=== PATIENT | male | born 1960 | race Caucasian/White ===

== ENCOUNTER 2020-09-12 10:08 | Inpatient (IN) ==
[2020-09-12] MEDS ORDERED: Piperacillin/Tazobactam 3.375 GM in Water for inj. (sterile) 20 ML IVP ONE (10:49)
[2020-09-12] MEDS ORDERED: Vancomycin 2,000 MG/520 ML IV.SOLN IVPB ONE (10:49)
[2020-09-12 11:36] LABS: Basophils # 0.1 K/mcL (0.0-0.2); Basophils % 0.5 %; Eosinophils # 0.2 K/mcL (0.0-0.6); Eosinophils % 1.7 %; Hematocrit 45.6 % (37.5-50.1); Immature Granulocytes % 0.8 % (0-4); Lymphocytes # 2.4 K/mcL (0.6-4.6); Mean Corpuscular HGB Conc 32.9 g/dL (31.6-35.5); Mean Corpuscular Hemoglobin 31.2 pg (28.0-33.3); Mean Corpuscular Volume 94.8 fL (83.0-100.0); Mean Platelet Volume 10.6 fL (9.4-12.4); Monocytes # 0.6 K/mcL (0.0-1.3); Monocytes % 6.4 %; Platelet Count 197 K/mcL (140-400); Red Blood Count 4.81 M/mcL (4.19-5.50); Red Cell Distribution Width 12.9 % (11.5-14.5); Segmented Neutrophils % 64.6 %; White Blood Count 9.3 K/mcL (4.3-11.1)
[2020-09-12 11:37] LABS: Bilirubin,Urine Negative (Negative); Blood,Urine Negative (Negative); Clarity,Urine Clear (Clear); Color,Urine Light-Yellow (Yellow); Glucose,Urine (UA) Normal (Normal); Ketones,Urine Negative (Negative); Leukocyte Esterase,Urine Negative (Negative); Nitrite,Urine Negative (Negative); PH,Urine 5.5 pH Units (5.0-8.0); Protein,Urine Negative (Neg-Trace); Specific Gravity,Urine > 1.030 (1.010-1.025); Urobilinogen,Urine Normal (Normal)
[2020-09-12 11:44] LABS: Prothrombin Time 11.9 Seconds (9.4-12.1)
[2020-09-12 11:47] LABS: Activated Partial Thrombo Time 28.3 Seconds (26.0-36.0)
[2020-09-12 11:52] LABS: BUN/Creatinine Ratio 29 (6-26); Blood Urea Nitrogen 20 mg/dL (6-20); Carbon Dioxide 25 mEq/L (23-29); Chloride 103 mEq/L (98-107); Glucose 169 mg/dL (70-105); Osmolality,Calculated 289 (280-300); Potassium 4.2 mEq/L (3.5-5.1); Sodium 136 mEq/L (136-145); Troponin I < 0.03 ng/mL (< 0.04); eGFR For African Americans > 60 (> 60); eGFR For Non-African Americans > 60 (> 60)
[2020-09-12] MEDS ORDERED: Naloxone 0.4 MG/ML INJ IVP PRN (12:50)
[2020-09-12] MEDS ORDERED: Ondansetron 4 MG/2 ML VIAL IVP PRN (12:50)
[2020-09-12] MEDS ORDERED: *HR* OxyCODONE/APAP 5/325 TABLET PO PRN (12:51)
[2020-09-12] MEDS ORDERED: Carisoprodol 350 MG TABLET PO PRN (12:51)
[2020-09-12] MEDS ORDERED: *HR* Dextrose 50 % in Water (Vial) 50 ML VIAL IVP PRN (12:56)
[2020-09-12] MEDS ORDERED: Dextrose Gel 15 GM/37.5 ML TUBE PO PRN ×2 (12:56)
[2020-09-12] MEDS ORDERED: D5% in Water 1,000 ML IVC PRN (12:56)
[2020-09-12 13:59] LABS: C-Reactive Protein < 5 mg/L (Less than 10)
[2020-09-12] MEDS: Insulin LISPRO 300 UNITS/3 ML VIAL SQ SCH ×3 (15:53→20:44)
[2020-09-12] MEDS: *HR* Heparin 5,000 UNIT/ML VIAL SQ SCH (18:06)
[2020-09-12] MEDS: Piperacillin/Tazobactam 3.375 GM in 0.9 % Sodium Chloride Mini Bag 100 ML IVPB SCH (18:21)
[2020-09-12] MEDS: 0.9 % Sodium Chloride 1,000 ML IVC SCH (18:21)
[2020-09-13] MEDS ORDERED: Vancomycin 2,000 MG/520 ML IV.SOLN IVPB ONE
[2020-09-13] MEDS: Piperacillin/Tazobactam 3.375 GM in 0.9 % Sodium Chloride Mini Bag 100 ML IVPB SCH ×3 (02:19→17:40)
[2020-09-13] MEDS: *HR* Heparin 5,000 UNIT/ML VIAL SQ SCH ×2 (02:59→17:40)
[2020-09-13] MEDS: Insulin LISPRO 300 UNITS/3 ML VIAL SQ SCH ×4 (08:23→21:25)
[2020-09-13] MEDS ORDERED: Perflutren Lipid Microsphere 1.3 ML in 0.9 % Sodium Chloride 8.7 ML IVP PRN (09:26)
[2020-09-13] MEDS ORDERED: Regadenoson 0.4 MG/5 ML SYRINGE IVP ONE (10:48)
[2020-09-13 13:43] LABS: Basophils % 0.5 %; Eosinophils # 0.1 K/mcL (0.0-0.6); Eosinophils % 1.8 %; Hematocrit 43.9 % (37.5-50.1); Immature Granulocytes % 0.8 % (0-4); Lymphocytes # 1.6 K/mcL (0.6-4.6); Lymphocytes % 19.7 %; Mean Corpuscular HGB Conc 31.9 g/dL (31.6-35.5); Mean Corpuscular Volume 94.2 fL (83.0-100.0); Mean Platelet Volume 10.3 fL (9.4-12.4); Monocytes # 0.5 K/mcL (0.0-1.3); Monocytes % 5.8 %; Neutrophils # 5.7 K/mcL (1.6-8.9); Platelet Count 184 K/mcL (140-400); Red Blood Count 4.66 M/mcL (4.19-5.50); Segmented Neutrophils % 71.4 %; White Blood Count 7.9 K/mcL (4.3-11.1)
[2020-09-13] MEDS: Vancomycin 1,500 MG/265 ML IV.SOLN IVPB SCH ×2 (13:58→23:55)
[2020-09-13 14:00] LABS: BUN/Creatinine Ratio 20 (6-26); Blood Urea Nitrogen 12 mg/dL (6-20); Calcium 8.9 mg/dL (8.6-10.3); Carbon Dioxide 24 mEq/L (23-29); Chloride 106 mEq/L (98-107); Glucose 173 mg/dL (70-105); Osmolality,Calculated 288 (280-300); Sodium 137 mEq/L (136-145); eGFR For African Americans > 60 (> 60); eGFR For Non-African Americans > 60 (> 60)
[2020-09-13 14:27] LABS: Acinetobacter baumannii by PCR Not Detected (Not Detect); Candida albicans by PCR Not Detected (Not Detect); Candida glabrata by PCR Not Detected (Not Detect); Candida krusei by PCR Not Detected (Not Detect); Enterobacter cloacae Cmplx PCR Not Detected (Not Detect); Enterobacteriaceae by PCR Not Detected (Not Detect); Enterococcus by PCR Not Detected (Not Detect); Escherichia coli by PCR Not Detected (Not Detect); Klebsiella oxytoca by PCR Not Detected (Not Detect); Klebsiella pneumoniae by PCR Not Detected (Not Detect); Proteus by PCR Not Detected (Not Detect); Pseudomonas aeruginosa by PCR Not Detected (Not Detect); Serratia marcescens by PCR Not Detected (Not Detect); Staphylococcus aureus by PCR Not Detected (Not Detect); Staphylococcus by PCR Not Detected (Not Detect); Streptococcus agalactiae(B)PCR Not Detected (Not Detect); Streptococcus by PCR Not Detected (Not Detect); Streptococcus pneumoniae PCR Not Detected (Not Detect); Streptococcus pyogenes (A) PCR Not Detected (Not Detect); blaKPC Carbapenem-Resist Gene Not Detected (Not Detect); mecA Methicillin-Resist Gene Not Detected (Not Detect); vanA/B Vancomycin-Resist Genes Not Detected (Not Detect)
[2020-09-13 14:28] LABS: Candida parapsilosis by PCR Not Detected (Not Detect); Candida tropicalis by PCR Not Detected (Not Detect)
[2020-09-13] MEDS ORDERED: Piperacillin/Tazobactam 3.375 GM VIAL ONE (17:36)
[2020-09-14] MEDS: Piperacillin/Tazobactam 3.375 GM in 0.9 % Sodium Chloride Mini Bag 100 ML IVPB SCH ×2 (01:41→23:01)
[2020-09-14 05:08] LABS: Hematocrit 42.9 % (37.5-50.1); Hemoglobin 13.9 g/dL (12.9-16.9); Mean Corpuscular HGB Conc 32.4 g/dL (31.6-35.5); Mean Corpuscular Volume 95.5 fL (83.0-100.0); Mean Platelet Volume 10.8 fL (9.4-12.4); Platelet Count 179 K/mcL (140-400); Red Blood Count 4.49 M/mcL (4.19-5.50); Red Cell Distribution Width 12.7 % (11.5-14.5); White Blood Count 7.2 K/mcL (4.3-11.1)
[2020-09-14 05:23] LABS: BUN/Creatinine Ratio 19 (6-26); Blood Urea Nitrogen 13 mg/dL (6-20); Carbon Dioxide 23 mEq/L (23-29); Chloride 106 mEq/L (98-107); Glucose 134 mg/dL (70-105); Magnesium 1.7 mg/dL (1.6-2.6); Osmolality,Calculated 286 (280-300); Phosphorous 3.2 mg/dL (2.7-4.5); Potassium 3.9 mEq/L (3.5-5.1); Sodium 137 mEq/L (136-145); eGFR For African Americans > 60 (> 60); eGFR For Non-African Americans > 60 (> 60)
[2020-09-14] MEDS: *HR* Heparin 5,000 UNIT/ML VIAL SQ SCH ×2 (05:55→16:59)
[2020-09-14] MEDS ORDERED: 0.9 % Sodium Chloride 2,000 ML ONE (07:06)
[2020-09-14] MEDS ORDERED: ISOVUE-370 200 ML INFUS..BTL ONE ×3 (07:06→09:53)
[2020-09-14] MEDS ORDERED: *HR* Heparin 10,000 UNIT/10 ML VIAL ONE (07:06)
[2020-09-14] MEDS ORDERED: Nitroglycerin 1,000 MCG/10 ML VIAL IV ONE (07:06)
[2020-09-14] MEDS ORDERED: Heparin 1,000 UNITS/500 mL 500 ML ONE (07:06)
[2020-09-14] MEDS: Insulin LISPRO 300 UNITS/3 ML VIAL SQ SCH ×3 (07:28→16:27)
[2020-09-14] MEDS ORDERED: Vitamin B Complex/Vit C/Vit E 1 EACH TABLET PO SCH (09:00)
[2020-09-14] MEDS ORDERED: *HR* Midazolam HCl 2 MG/2 ML VIAL ONE (10:27)
[2020-09-14] MEDS ORDERED: *HR* FentaNYL (PF) 100 MCG/2 ML VIAL ONE ×4 (10:35→19:34)
[2020-09-14] MEDS ORDERED: Acetaminophen 325 MG TABLET PO PRN ×2 (11:03→21:17)
[2020-09-14] MEDS ORDERED: *HR* OxyCODONE/APAP 5/325 TABLET PO SCH (13:00)
[2020-09-14] MEDS ORDERED: Aspirin Enteric Coated 81 MG Tablet PO SCH (13:30)
[2020-09-14] MEDS ORDERED: *HR* OxyCODONE/APAP 5/325 TABLET PO PRN ×2 (14:00→20:39)
[2020-09-14] MEDS ORDERED: Piperacillin/Tazobactam 3.375 GM in 0.9 % Sodium Chloride Mini Bag 100 ML IVPB SCH (14:00)
[2020-09-14] MEDS ORDERED: *HR* OxyCODONE/APAP 10/325 TABLET PO PRN (15:04)
[2020-09-14] MEDS ORDERED: Vancomycin 1,500 MG/265 ML IV.SOLN IVPB SCH (15:30)
[2020-09-14] MEDS ORDERED: *HR* OxyCODONE/APAP 5/325 TABLET PO ONE (15:31)
[2020-09-14] MEDS ORDERED: Lidocaine 1% 20 ML MDV ONE (15:53)
[2020-09-14] MEDS ORDERED: Bupivacaine/EPI 1:200k 0.25% 50 ML VIAL ONE (15:53)
[2020-09-14] MEDS ORDERED: *HR* Propofol 200 MG/20 ML VIAL IVP ONE ×2 (16:24→19:49)
[2020-09-14] MEDS ORDERED: Lidocaine -MPF 2% 2 ML VIAL ONE ×2 (16:24)
[2020-09-14] MEDS ORDERED: Ondansetron 4 MG/2 ML VIAL ONE (16:25)
[2020-09-14] MEDS ORDERED: Dexamethasone 4 MG/ML VIAL ONE ×2 (16:25→17:33)
[2020-09-14] MEDS ORDERED: Ropivacaine/PF 0.5% 30 ML VIAL ONE (17:01)
[2020-09-14] MEDS ORDERED: *HR* Succinylcholine 200 MG/10 ML VIAL IVP ONE (17:23)
[2020-09-14] MEDS ORDERED: Lidocaine HCL 4 ML Topical Solution (Laryng-O-Jet Kit Sterile Pak) TP ONE (17:28)
[2020-09-14] MEDS ORDERED: *HR* Labetalol 20 MG/4 ML SYRINGE IVP ONE (20:19)
[2020-09-14] MEDS ORDERED: Morphine Sulfate 2 MG/ML SYRINGE IVP PRN (20:23)
[2020-09-14] MEDS ORDERED: Ondansetron 4 MG/2 ML VIAL IVP PRN ×2 (20:25→21:17)
[2020-09-14] MEDS ORDERED: *HR* Labetalol 20 MG/4 ML SYRINGE IVP PRN (20:26)
[2020-09-14] MEDS ORDERED: *HR* OxyCODONE Immed Rel 5 MG TABLET PO PRN (20:39)
[2020-09-14] MEDS ORDERED: Carisoprodol 350 MG TABLET PO PRN (21:17)
[2020-09-14] MEDS ORDERED: Naloxone 0.4 MG/ML INJ IVP PRN (21:17)
[2020-09-14] MEDS ORDERED: D5% in Water 1,000 ML IVC PRN (21:17)
[2020-09-14] MEDS ORDERED: *HR* Dextrose 50 % in Water (Vial) 50 ML VIAL IVP PRN (21:17)
[2020-09-14] MEDS ORDERED: Dextrose Gel 15 GM/37.5 ML TUBE PO PRN ×2 (21:17)
[2020-09-14] MEDS: *HR* OxyCODONE/APAP 10/325 TABLET PO PRN (23:01)
[2020-09-15 02:49] LABS: Hematocrit 37.6 % (37.5-50.1); Mean Corpuscular HGB Conc 32.2 g/dL (31.6-35.5); Mean Corpuscular Volume 93.1 fL (83.0-100.0); Mean Platelet Volume 10.7 fL (9.4-12.4); Platelet Count 164 K/mcL (140-400); Red Blood Count 4.04 M/mcL (4.19-5.50); Red Cell Distribution Width 12.9 % (11.5-14.5)
[2020-09-15 02:51] LABS: Hemoglobin 12.1 g/dL (12.9-16.9); White Blood Count 13.4 K/mcL (4.3-11.1)
[2020-09-15 03:09] LABS: BUN/Creatinine Ratio 23 (6-26); Blood Urea Nitrogen 16 mg/dL (6-20); Calcium 8.4 mg/dL (8.6-10.3); Carbon Dioxide 23 mEq/L (23-29); Chloride 104 mEq/L (98-107); Glucose 346 mg/dL (70-105); Magnesium 1.6 mg/dL (1.6-2.6); Osmolality,Calculated 297 (280-300); Phosphorous 3.7 mg/dL (2.7-4.5); Potassium 3.8 mEq/L (3.5-5.1); Sodium 136 mEq/L (136-145); eGFR For African Americans > 60 (> 60); eGFR For Non-African Americans > 60 (> 60)
[2020-09-15] MEDS: *HR* OxyCODONE/APAP 10/325 TABLET PO PRN ×4 (04:55→23:34)
[2020-09-15] MEDS: *HR* Heparin 5,000 UNIT/ML VIAL SQ SCH ×2 (04:55→17:34)
[2020-09-15] MEDS: Piperacillin/Tazobactam 3.375 GM in 0.9 % Sodium Chloride Mini Bag 100 ML IVPB SCH ×4 (04:56→22:10)
[2020-09-15] MEDS: Aspirin Enteric Coated 81 MG Tablet PO SCH (08:36)
[2020-09-15] MEDS: Insulin LISPRO 300 UNITS/3 ML VIAL SQ SCH ×5 (08:37→20:37)
[2020-09-15] MEDS: Vitamin B Complex/Vit C/Vit E 1 EACH TABLET PO SCH (08:37)
[2020-09-15] MEDS: Vancomycin 1,500 MG/265 ML IV.SOLN IVPB SCH (09:46)
[2020-09-15] MEDS: 0.9 % Sodium Chloride 1,000 ML IVC SCH ×2 (10:25→10:30)
[2020-09-15] MEDS: *HR* OxyCODONE/APAP 5/325 TABLET PO PRN ×2 (15:53→22:06)
[2020-09-15] MEDS: carvediloL 6.25 MG TABLET PO SCH (17:34)
[2020-09-16 02:39] LABS: BUN/Creatinine Ratio 22 (6-26); Blood Urea Nitrogen 14 mg/dL (6-20); Calcium 8.5 mg/dL (8.6-10.3); Carbon Dioxide 27 mEq/L (23-29); Chloride 106 mEq/L (98-107); Glucose 187 mg/dL (70-105); Magnesium 1.8 mg/dL (1.6-2.6); Osmolality,Calculated 291 (280-300); Phosphorous 2.7 mg/dL (2.7-4.5); Potassium 3.9 mEq/L (3.5-5.1); Sodium 138 mEq/L (136-145); eGFR For African Americans > 60 (> 60); eGFR For Non-African Americans > 60 (> 60)
[2020-09-16 03:22] LABS: Hemoglobin 10.7 g/dL (12.9-16.9); Mean Corpuscular HGB Conc 31.5 g/dL (31.6-35.5); Mean Corpuscular Hemoglobin 29.9 pg (28.0-33.3); Mean Platelet Volume 11.1 fL (9.4-12.4); Platelet Count 148 K/mcL (140-400); Red Blood Count 3.58 M/mcL (4.19-5.50); White Blood Count 9.5 K/mcL (4.3-11.1)
[2020-09-16] MEDS: Piperacillin/Tazobactam 3.375 GM in 0.9 % Sodium Chloride Mini Bag 100 ML IVPB SCH ×3 (05:37→21:19)
[2020-09-16] MEDS: *HR* Heparin 5,000 UNIT/ML VIAL SQ SCH ×2 (05:37→16:58)
[2020-09-16] MEDS: *HR* OxyCODONE/APAP 10/325 TABLET PO PRN ×3 (05:38→18:45)
[2020-09-16] MEDS: Vitamin B Complex/Vit C/Vit E 1 EACH TABLET PO SCH (08:32)
[2020-09-16] MEDS: Aspirin Enteric Coated 81 MG Tablet PO SCH (08:32)
[2020-09-16] MEDS: lisinopriL 5 MG TABLET PO SCH (08:32)
[2020-09-16] MEDS: carvediloL 6.25 MG TABLET PO SCH ×3 (08:32→16:56)
[2020-09-16] MEDS: Insulin LISPRO 300 UNITS/3 ML VIAL SQ SCH ×4 (08:42→20:26)
[2020-09-16] MEDS ORDERED: Doxycycline 100 MG CAPSULE PO SCH (09:30)
[2020-09-16] MEDS: *HR* Metformin 500 MG TABLET PO SCH ×2 (11:27→16:56)
[2020-09-16] MEDS: Lactobacillus 1 EACH CAP.SPRINK PO SCH (11:28)
[2020-09-16 17:31] LABS: Estimated Average Glucose 146 mg/dl
[2020-09-16 17:32] LABS: Hematocrit 34.4 % (37.5-50.1); Hemoglobin 11.1 g/dL (12.9-16.9)
[2020-09-17] MEDS: *HR* OxyCODONE/APAP 10/325 TABLET PO PRN ×3 (00:46→15:21)
[2020-09-17 01:03] LABS: Hematocrit 34.4 % (37.5-50.1); Hemoglobin 11.1 g/dL (12.9-16.9); Mean Corpuscular HGB Conc 32.3 g/dL (31.6-35.5); Mean Corpuscular Volume 96.1 fL (83.0-100.0); Mean Platelet Volume 10.9 fL (9.4-12.4); Platelet Count 157 K/mcL (140-400); Red Blood Count 3.58 M/mcL (4.19-5.50); White Blood Count 9.3 K/mcL (4.3-11.1)
[2020-09-17 01:08] LABS: INR 1.1; Prothrombin Time 12.8 Seconds (9.4-12.1)
[2020-09-17 01:11] LABS: Activated Partial Thrombo Time 27.2 Seconds (26.0-36.0)
[2020-09-17 01:26] LABS: % Iron Saturation 9 % (20-55); BUN/Creatinine Ratio 18 (6-26); Bilirubin,Direct 0.1 mg/dL (0.0-0.2); Bilirubin,Indirect 0.5 mg/dL (0.0-1.0); Bilirubin,Total 0.6 mg/dL (0.3-1.0); Blood Urea Nitrogen 13 mg/dL (6-20); Calcium 8.5 mg/dL (8.6-10.3); Carbon Dioxide 26 mEq/L (23-29); Chloride 103 mEq/L (98-107); Glucose 164 mg/dL (70-105); Iron 28 mcg/dL (65-175); Lactate Dehydrogenase 120 Units/L (140-271); Magnesium 1.6 mg/dL (1.6-2.6); Osmolality,Calculated 286 (280-300); Potassium 4.1 mEq/L (3.5-5.1); Sodium 136 mEq/L (136-145); Transferrin 226 mg/dL (203-362); eGFR For African Americans > 60 (> 60); eGFR For Non-African Americans > 60 (> 60)
[2020-09-17 01:42] LABS: Ferritin 75 ng/mL (20-250)
[2020-09-17] MEDS: *HR* Heparin 5,000 UNIT/ML VIAL SQ SCH ×2 (05:36→15:20)
[2020-09-17] MEDS: Piperacillin/Tazobactam 3.375 GM in 0.9 % Sodium Chloride Mini Bag 100 ML IVPB SCH ×3 (05:36→21:33)
[2020-09-17] MEDS: Insulin LISPRO 300 UNITS/3 ML VIAL SQ SCH ×4 (09:01→21:52)
[2020-09-17] MEDS: *HR* Metformin 500 MG TABLET PO SCH ×2 (09:38→15:20)
[2020-09-17] MEDS: Aspirin Enteric Coated 81 MG Tablet PO SCH (09:38)
[2020-09-17] MEDS: Lactobacillus 1 EACH CAP.SPRINK PO SCH (09:39)
[2020-09-17] MEDS: Vitamin B Complex/Vit C/Vit E 1 EACH TABLET PO SCH (09:39)
[2020-09-17] MEDS: carvediloL 6.25 MG TABLET PO SCH ×2 (09:39→15:21)
[2020-09-17] MEDS: lisinopriL 5 MG TABLET PO SCH (09:39)
[2020-09-17] MEDS ORDERED: Iron Sucrose Complex 400 MG in 0.9 % Sodium Chloride 250 ML IVPB ONE (18:32)
[2020-09-17] MEDS ORDERED: Melatonin 3 MG TABLET PO ONE (21:18)
[2020-09-18 04:40] LABS: Hematocrit 32.6 % (37.5-50.1); Hemoglobin 10.8 g/dL (12.9-16.9); Mean Corpuscular HGB Conc 33.1 g/dL (31.6-35.5); Mean Corpuscular Hemoglobin 31.5 pg (28.0-33.3); Mean Platelet Volume 11.1 fL (9.4-12.4); Platelet Count 153 K/mcL (140-400); Red Blood Count 3.43 M/mcL (4.19-5.50); Red Cell Distribution Width 12.5 % (11.5-14.5); White Blood Count 7.9 K/mcL (4.3-11.1)
[2020-09-18 04:54] LABS: BUN/Creatinine Ratio 15 (6-26); Blood Urea Nitrogen 10 mg/dL (6-20); Calcium 8.6 mg/dL (8.6-10.3); Carbon Dioxide 27 mEq/L (23-29); Chloride 103 mEq/L (98-107); Glucose 148 mg/dL (70-105); Osmolality,Calculated 288 (280-300); Sodium 138 mEq/L (136-145); eGFR For African Americans > 60 (> 60); eGFR For Non-African Americans > 60 (> 60)
[2020-09-18] MEDS: *HR* OxyCODONE/APAP 10/325 TABLET PO PRN ×3 (05:47→23:59)
[2020-09-18] MEDS: Piperacillin/Tazobactam 3.375 GM in 0.9 % Sodium Chloride Mini Bag 100 ML IVPB SCH ×3 (05:47→22:21)
[2020-09-18] MEDS: *HR* Heparin 5,000 UNIT/ML VIAL SQ SCH ×2 (05:48→17:31)
[2020-09-18] MEDS: Vitamin B Complex/Vit C/Vit E 1 EACH TABLET PO SCH (09:05)
[2020-09-18] MEDS: Lactobacillus 1 EACH CAP.SPRINK PO SCH (09:05)
[2020-09-18] MEDS: Aspirin Enteric Coated 81 MG Tablet PO SCH (09:05)
[2020-09-18] MEDS: carvediloL 6.25 MG TABLET PO SCH ×2 (09:05→17:31)
[2020-09-18] MEDS: *HR* Metformin 500 MG TABLET PO SCH ×2 (09:05→17:31)
[2020-09-18] MEDS: lisinopriL 5 MG TABLET PO SCH (09:06)
[2020-09-18] MEDS: Insulin LISPRO 300 UNITS/3 ML VIAL SQ SCH ×4 (09:08→22:23)
[2020-09-18] MEDS: Doxycycline 100 MG CAPSULE PO SCH (22:22)
[2020-09-19] MEDS ORDERED: Piperacillin/Tazobactam 3.375 GM VIAL ONE (06:34)
[2020-09-19] MEDS: Piperacillin/Tazobactam 3.375 GM in 0.9 % Sodium Chloride Mini Bag 100 ML IVPB SCH (06:47)
[2020-09-19] MEDS: *HR* Heparin 5,000 UNIT/ML VIAL SQ SCH (06:48)
[2020-09-19] MEDS: lisinopriL 5 MG TABLET PO SCH (07:46)
[2020-09-19] MEDS: Aspirin Enteric Coated 81 MG Tablet PO SCH (07:46)
[2020-09-19] MEDS: Doxycycline 100 MG CAPSULE PO SCH (07:47)
[2020-09-19] MEDS: *HR* Metformin 500 MG TABLET PO SCH (07:47)
[2020-09-19] MEDS: Vitamin B Complex/Vit C/Vit E 1 EACH TABLET PO SCH (07:47)
[2020-09-19] MEDS: Lactobacillus 1 EACH CAP.SPRINK PO SCH (07:47)
[2020-09-19] MEDS: carvediloL 6.25 MG TABLET PO SCH (07:47)
[2020-09-19] MEDS: Insulin LISPRO 300 UNITS/3 ML VIAL SQ SCH ×2 (07:53→12:38)
[2020-09-19] MEDS: *HR* OxyCODONE/APAP 10/325 TABLET PO PRN (07:55)
[2020-09-19 13:26] VITALS: BP 123/67
== END 2020-09-19 14:35 | disposition home health service (06) | DRG 26 ==
LOC: EMEROOARM 10:08 → 3NENU 10:08 → SUATTDRO 16:24 → 3NENU 18:04
PROVIDERS: ADMIT Internal Medicine; ATTEND Internal Medicine